=== PATIENT | male | born 1960 | race Caucasian/White ===

== ENCOUNTER 2021-04-16 20:35 | Inpatient (IN) | payer BC ==
[2021-04-16] MEDS ORDERED: Ketamine 50 MG/ML (10ML VIAL) ONE (20:52)
[2021-04-16] MEDS ORDERED: Heparin 10,000 UNITS/ 10 ML VIAL ONE (20:53)
[2021-04-16] MEDS ORDERED: Norepinephrine 8 MG/0.9% NS 250 ML ONE (20:53)
[2021-04-16] MEDS ORDERED: Heparin 25,000 units/D5W 500 ML ONE (20:53)
[2021-04-16] MEDS ORDERED: Lidocaine 1% PF 5 ML VIAL ONE (20:55)
[2021-04-16] MEDS ORDERED: Fentanyl CADD 100 ML IV SCH (21:00)
[2021-04-16] MEDS ORDERED: Fentanyl 100 MCG/2 ML VIAL ONE (21:02)
[2021-04-16] MEDS ORDERED: Propofol 1,000 MG/100 ML VIAL IV ONE (21:02)
[2021-04-16] MEDS ORDERED: Midazolam HCl 5 mg/ml Vial ONE (21:03)
[2021-04-16 21:33] LABS: Hemoglobin 14.8 g/dL (14.0-18.0); Mean Corpuscular HGB CONC 33.9 g/dL (32.0-36.0); Mean Corpuscular Hemoglobin 32.6 pg (27.0-31.0); Mean Corpuscular Volume 96.2 fL (78.0-98.0); Mean Platelet Volume 8.1 fL (7.4-10.4); Platelet Count 193 thou/uL (130-400); RBC Distribution Width 12.1 % (11.5-14.5); Red Blood Cell (RBC) Count 4.54 mill/uL (4.70-6.10); White Blood Cell (WBC) Count 14.1 thou/uL (4.8-10.8)
[2021-04-16 21:48] LABS: ALT (SGPT) 172 U/L (8-55); AST (SGOT) 135 U/L (5-34); Alkaline Phosphatase 62 U/L (40-110); Anion Gap 31 mmol/L (10-20); BUN (Urea Nitrogen) 12 mg/dL (8.4-25.7); Bilirubin, Total 0.7 mg/dL (0.2-1.2); CK (CPK) 168 U/L (30-200); Calc. Creatinine Clearance 0 mL/min (70-130); Calcium 8.6 mg/dL (7.8-10.44); Carbon Dioxide 11 mmol/L (22-29); Chloride 106 mmol/L (98-107); Globulin 2.2 g/dL (2.4-3.5); Glucose 266 mg/dL (70-105); Protein, Total 6.2 g/dL (6.0-8.3); Sodium 145 mmol/L (136-145)
[2021-04-16 21:52] LABS: Band 9 % (5-11); Lymphocytes 15 % (21-51); MDiff Complete? YES; Monocytes 4 % (0-10); Myelocyte 1 % (0-0); Neutrophil 41 % (42-75); Platelet Morphology Comment Appears Adequate; RBC Morphology Normal; Reactive Lymphocytes 30 % (0-10)
[2021-04-16 21:57] LABS: Potassium 2.8 mmol/L (3.5-5.1)
[2021-04-16] MEDS ORDERED: Potassium Chloride 40 MEQ in Premix Bag 1 BAG IVPB SCH (22:30)
[2021-04-16 22:44] LABS: Bacteria/HPF 3+ HPF (None Seen); Bilirubin Negative (Negative); Blood, Urine 3+ (Negative); Clarity Turbid (Clear); Glucose, Urine (Dipstick) 70 mg/dL (Negative); Ketone, Urine Trace mg/dL (Negative); Leukocyte Negative Leu/uL (Negative); Mucous/LPF Rare LPF (<2+); Nitrite Negative (Negative); Protein, Urine (Dipstick) 600 mg/dL (Neg-Trace); RBC/HPF 21-50 HPF (0-3); Squamous Epithelial 0-3 HPF (0-3); Urobilinogen Normal mg/dL (Less than 2); WBC/HPF 21-50 HPF (0-3); pH, Urine 6.5 (5.0-9.0)
[2021-04-16 23:13] LABS: Magnesium 2.8 mg/dL (1.6-2.6)
[2021-04-16] MEDS ORDERED: Ondansetron PF 4 MG/2 ML Vial IVP PRN (23:14)
[2021-04-16 23:36] LABS: SARS-CoV-2 NAA Rapid Test Not Detected (NotDetected)
[2021-04-16 23:55] LABS: Actual Bicarbonate (HCO3a) 9.5 mEq/L (22-28); Analyzer IN Cardio ER; Base Excess (BEa) -18.4 mEq/L (-2.0 to +3.0); CO2 Tension 29.2 mmHg (35.0-45.0); Carboxyhemoglobin (COHb) 0.3 gm% (0.0-3.0); Hemoglobin (Hb) 13.9 g/dL (14.0-18.0); O2 Tension (PaO2), arterial 413.4 mmHg (80.0-100.0); Potassium - ABG Lab 2.82 mmol/L (3.70-5.30)
[2021-04-16 23:55] LABS: Actual Bicarbonate (HCO3a) 14.7 mEq/L (22-28); Analyzer IN Cardio ER; Calcium, Ionized (arterial) 1.12 mmol/L (1.12-1.30); Carboxyhemoglobin (COHb) 0.3 gm% (0.0-3.0); Hemoglobin (Hb) 14.9 g/dL (14.0-18.0); O2 Tension (PaO2), arterial 166.9 mmHg (80.0-100.0); Potassium - ABG Lab 3.93 mmol/L (3.70-5.30); pH, Arterial 7.49 (7.35-7.45)
[2021-04-17] MEDS ORDERED: Dextrose 50% Abboject 50 ML SYRINGE SLOW IVP PRN (00:04)
[2021-04-17] MEDS ORDERED: Dextrose 5% in Water 1,000 ML IV PRN (00:04)
[2021-04-17] MEDS ORDERED: HumaLOG 300 UNITS/3 ML VIAL SC PRN ×2 (00:04)
[2021-04-17 00:06] LABS: Troponin I 1.629 ng/mL (< 0.028)
[2021-04-17] MEDS ORDERED: Sodium Chloride 0.9% 1,000 ML IV SCH ×4 (00:15→17:42)
[2021-04-17] MEDS ORDERED: Cefepime 2 GM in Sodium Chloride 0.9% 100 ML IVPB SCH (00:15)
[2021-04-17 00:33] LABS: Puncture Site RBA; pH, Arterial 7.13 (7.35-7.45)
[2021-04-17 00:34] LABS: Puncture Site LRA
[2021-04-17] MEDS ORDERED: Ventilator Sedation Protocol 1 EACH FS SCH (00:45)
[2021-04-17] MEDS ORDERED: Norepinephrine 8 MG/0.9% NS 250 ML IVPB SCH (00:45)
[2021-04-17] MEDS ORDERED: Amiodarone 450 MG in Dextrose 5% in Water 250 ML IVPB SCH (00:45)
[2021-04-17] MEDS ORDERED: Heparin 25,000 units/D5W 500 ML IVPB SCH (00:45)
[2021-04-17] MEDS ORDERED: Heparin 10,000 UNITS/ 10 ML VIAL SLOW IVP SCH (00:45)
[2021-04-17 00:46] LABS: Lactic Acid 2.3 mmol/L (0.5-2.2)
[2021-04-17] MEDS ORDERED: Propofol 1,000 MG/100 ML VIAL IV PRN (01:00)
[2021-04-17] MEDS ORDERED: Morphine 2 MG/ML VIAL SLOW IVP PRN (01:00)
[2021-04-17] MEDS ORDERED: Propofol BOLUS 1,000 MG/100 ML VIAL IV PRN (01:00)
[2021-04-17] MEDS ORDERED: VANCOMYCIN 2 GRAM/400 ML BAG 2 GM in Premix Bag 1 BAG IVPB SCH (01:00)
[2021-04-17] MEDS ORDERED: Lorazepam 2 MG/ML VIAL SLOW IVP PRN (01:00)
[2021-04-17] MEDS ORDERED: Fentanyl BOLUS 250 ML IVPB PRN (01:00)
[2021-04-17] MEDS ORDERED: DISCONTINUE PREVIOUS NARCOTIC PAIN MEDICATIONS AND BENZODIAZEPINES FS SCH (01:00)
[2021-04-17 03:09] LABS: Hemoglobin 14.6 g/dL (14.0-18.0); Platelet Count 221 thou/uL (130-400)
[2021-04-17] MEDS ORDERED: Propofol 1,000 MG/100 ML VIAL IV ONE ×2 (03:09→09:59)
[2021-04-17 03:37] LABS: Troponin I 4.802 ng/mL (< 0.028)
[2021-04-17] MEDS ORDERED: Cefepime 2 GM VIAL ONE ×3 (03:38→09:16)
[2021-04-17] MEDS ORDERED: Insulin Regular 300 UNITS/3 ML VIAL ONE (04:17)
[2021-04-17 04:55] LABS: Magnesium 2.3 mg/dL (1.6-2.6)
[2021-04-17] MEDS ORDERED: Norepinephrine 8 MG/0.9% NS 250 ML ONE (04:57)
[2021-04-17] MEDS: Heparin 5,000 UNITS/ML VIAL SC SCH (05:00)
[2021-04-17 05:05] LABS: Band 5 % (5-11); Hemoglobin 14.8 g/dL (14.0-18.0); Lymphocytes 12 % (21-51); MDiff Complete? YES; Mean Corpuscular HGB CONC 34.4 g/dL (32.0-36.0); Mean Corpuscular Hemoglobin 32.1 pg (27.0-31.0); Mean Corpuscular Volume 93.5 fL (78.0-98.0); Mean Platelet Volume 7.6 fL (7.4-10.4); Monocytes 9 % (0-10); Neutrophil 74 % (42-75); Platelet Count 225 thou/uL (130-400); Platelet Morphology Comment Appears Adequate; RBC Distribution Width 12.3 % (11.5-14.5); RBC Morphology Normal; Red Blood Cell (RBC) Count 4.61 mill/uL (4.70-6.10); White Blood Cell (WBC) Count 22.1 thou/uL (4.8-10.8)
[2021-04-17 05:21] LABS: ALT (SGPT) 244 U/L (8-55); AST (SGOT) 206 U/L (5-34); Albumin 4.1 g/dL (3.5-5.0); Alkaline Phosphatase 76 U/L (40-110); Anion Gap 20 mmol/L (10-20); BUN (Urea Nitrogen) 18 mg/dL (8.4-25.7); Bilirubin, Total 0.9 mg/dL (0.2-1.2); Calc. Creatinine Clearance 80 mL/min (70-130); Calcium 8.7 mg/dL (7.8-10.44); Carbon Dioxide 16 mmol/L (22-29); Chloride 110 mmol/L (98-107); Globulin 2.4 g/dL (2.4-3.5); Glucose 169 mg/dL (70-105); Potassium 3.8 mmol/L (3.5-5.1); Protein, Total 6.5 g/dL (6.0-8.3); Sodium 142 mmol/L (136-145)
[2021-04-17] MEDS ORDERED: Potassium Chloride 10 MEQ in Premix Bag 1 BAG IVPB SCH (06:00)
[2021-04-17 07:13] LABS: Critical Call Chem Troponin I RESULT DECREASING; Troponin I 2.851 ng/mL (< 0.028)
[2021-04-17] MEDS: Cefepime 2 GM in Sodium Chloride 0.9% 100 ML IVPB SCH ×3 (08:36→23:21)
[2021-04-17] MEDS ORDERED: Famotidine/PF 20 mg/2ml Vial ONE (08:43)
[2021-04-17] MEDS ORDERED: Aspirin Chewable 81 MG TAB ONE (08:43)
[2021-04-17] MEDS: Famotidine 20 MG TAB PO SCH ×2 (08:45→20:15)
[2021-04-17] MEDS: Aspirin 81 mg Enteric Coated Tablet PO SCH (08:45)
[2021-04-17] MEDS ORDERED: Enoxaparin Sodium 100 MG/ML SYRINGE ONE (09:29)
[2021-04-17] MEDS: Enoxaparin Sodium 100 MG/ML SYRINGE SC SCH ×2 (09:30→20:24)
[2021-04-17 10:00] LABS: Chloride 112 mmol/L (98-107); Potassium 3.5 mmol/L (3.5-5.1); Sodium 141 mmol/L (136-145)
[2021-04-17] MEDS ORDERED: Acetaminophen 325 MG TAB ONE (10:08)
[2021-04-17 10:09] LABS: Anion Gap 19 mmol/L (10-20); BUN (Urea Nitrogen) 17 mg/dL (8.4-25.7); Calc. Creatinine Clearance 95 mL/min (70-130); Calcium 7.7 mg/dL (7.8-10.44); Carbon Dioxide 14 mmol/L (22-29); Glucose 143 mg/dL (70-105)
[2021-04-17] MEDS ORDERED: metroNIDAZOLE 500 MG/100 ML BAG ONE (10:09)
[2021-04-17] MEDS ORDERED: Potassium Chloride 20 MEQ TAB PO SCH ×2 (10:45→21:45)
[2021-04-17] MEDS: Vancomycin 1 GM in Premix Bag 1 BAG IVPB SCH (13:54)
[2021-04-17] MEDS ORDERED: Nitroglycerin 2% Ointment 1 INCH/1 GM Packet TOP SCH ×2 (15:30→15:45)
[2021-04-17] MEDS ORDERED: Nitroglycerin 0.4 MG TAB (25 Tab Bottle) SL SCH ×2 (15:30→15:45)
[2021-04-17] MEDS ORDERED: Nitroglycerin 2% Ointment 1 INCH/1 GM Packet ONE (15:32)
[2021-04-17] MEDS ORDERED: Morphine 4 MG/ML VIAL SLOW IVP SCH ×2 (15:38→15:45)
[2021-04-17] MEDS ORDERED: Communication Order-Pharmacy FS SCH (17:45)
[2021-04-17] MEDS: Ketorolac Tromethamine 30 MG/ML VIAL IVP PRN (18:17)
[2021-04-17] MEDS: Acetaminophen 325 MG TAB PO PRN (20:21)
[2021-04-17] MEDS ORDERED: Furosemide 20 MG/2 ML VIAL SLOW IVP SCH (21:45)
[2021-04-17] MEDS: Nitroglycerin 2% Ointment 1 INCH/1 GM Packet TOP SCH (21:47)
[2021-04-18] MEDS: Vancomycin 1 GM in Premix Bag 1 BAG IVPB SCH ×2 (01:12→15:52)
[2021-04-18] MEDS: Ketorolac Tromethamine 30 MG/ML VIAL IVP PRN ×2 (02:29→20:49)
[2021-04-18 04:25] LABS: #Lymphocytes 1.2 thou/uL (1.20-3.40); #Monocytes 0.8 thou/uL (0.11-0.59); #Neutrophils 7.8 thou/uL (1.40-6.50); %Basophils 0.5 % (0.0-1.0); %Eosinophils 0.3 % (0.0-10.0); %Monocytes 8.3 % (0.0-10.0); %Neutrophils 78.8 % (42.0-75.0); Hemoglobin 11.6 g/dL (14.0-18.0); Mean Corpuscular Hemoglobin 32.9 pg (27.0-31.0); Mean Platelet Volume 7.6 fL (7.4-10.4); Platelet Count 128 thou/uL (130-400); RBC Distribution Width 12.4 % (11.5-14.5); Red Blood Cell (RBC) Count 3.53 mill/uL (4.70-6.10); White Blood Cell (WBC) Count 9.8 thou/uL (4.8-10.8)
[2021-04-18 04:50] LABS: ALT (SGPT) 140 U/L (8-55); AST (SGOT) 137 U/L (5-34); Albumin 3.4 g/dL (3.5-5.0); Alkaline Phosphatase 48 U/L (40-110); Anion Gap 10 mmol/L (10-20); BUN (Urea Nitrogen) 17 mg/dL (8.4-25.7); Bilirubin, Total 0.8 mg/dL (0.2-1.2); Calc. Creatinine Clearance 111 mL/min (70-130); Calcium 7.6 mg/dL (7.8-10.44); Carbon Dioxide 23 mmol/L (22-29); Chloride 109 mmol/L (98-107); Globulin 1.6 g/dL (2.4-3.5); Glucose 108 mg/dL (70-105); Potassium 3.7 mmol/L (3.5-5.1); Sodium 138 mmol/L (136-145)
[2021-04-18] MEDS: Nitroglycerin 2% Ointment 1 INCH/1 GM Packet TOP SCH (05:03)
[2021-04-18] MEDS: Cefepime 2 GM in Sodium Chloride 0.9% 100 ML IVPB SCH ×2 (07:26→16:01)
[2021-04-18] MEDS ORDERED: Lidocaine 1% (PF) 30 ML VIAL ONE (07:28)
[2021-04-18] MEDS ORDERED: Fentanyl 100 MCG/2 ML VIAL ONE (08:01)
[2021-04-18] MEDS ORDERED: Midazolam HCl 2 mg/2 ml Vial ONE (08:01)
[2021-04-18] MEDS ORDERED: Adenosine 6 MG/2 ML VIAL ONE (08:07)
[2021-04-18] MEDS ORDERED: Heparin 10,000 UNITS/ 10 ML VIAL ONE (08:34)
[2021-04-18] MEDS ORDERED: Nitroglycerin 100MG/250ML BOT 0 ML ONE (08:34)
[2021-04-18] MEDS ORDERED: diphenhydrAMINE 50 MG/ML VIAL ONE (08:36)
[2021-04-18] MEDS ORDERED: Iopamidol 370 76% 100 ML VIAL ONE (08:47)
[2021-04-18] MEDS ORDERED: Nitroglycerin 0.4 MG TAB (25 Tab Bottle) SL PRN (08:58)
[2021-04-18] MEDS ORDERED: Sodium Chloride 0.9% 200 ML IV PRN (08:58)
[2021-04-18] MEDS: Famotidine 20 MG TAB PO SCH ×2 (09:36→20:50)
[2021-04-18] MEDS: Acetaminophen 325 MG TAB PO PRN (09:37)
[2021-04-18] MEDS: Aspirin 81 mg Enteric Coated Tablet PO SCH (09:37)
[2021-04-18 10:05] LABS: Bilirubin Negative (Negative); Blood, Urine 3+ (Negative); Clarity Turbid (Clear); Glucose, Urine (Dipstick) Normal (Negative); Ketone, Urine 10 mg/dL (Negative); Leukocyte Negative Leu/uL (Negative); Nitrite Negative (Negative); Protein, Urine (Dipstick) 70 mg/dL (Neg-Trace); Squamous Epithelial 0-3 HPF (0-3); Urobilinogen Normal mg/dL (Less than 2)
[2021-04-18 10:13] LABS: Bacteria/HPF 1+ HPF (None Seen); Specific Gravity, Urine Greater than 1.060 (1.002-1.036)
[2021-04-18 10:16] LABS: Yeast-Budding None Seen HPF (None Seen)
[2021-04-18 10:17] LABS: Urine Culture Reflex Yes Yes
[2021-04-18] MEDS ORDERED: Potassium Chloride 20 MEQ TAB PO SCH (13:00)
[2021-04-18 13:46] LABS: Vancomycin, Trough 11.2 ug/mL
[2021-04-18] MEDS ORDERED: Vancomycin 1.5 GRAM/300 ML BAG 1.5 GM in Premix Bag 1 BAG IVPB SCH (14:15)
[2021-04-19] MEDS: Cefepime 2 GM in Sodium Chloride 0.9% 100 ML IVPB SCH ×3 (00:59→16:12)
[2021-04-19 01:16] LABS: Hemoglobin 12.1 g/dL (14.0-18.0); Platelet Count 128 thou/uL (130-400)
[2021-04-19 04:38] LABS: Magnesium 2.1 mg/dL (1.6-2.6)
[2021-04-19 05:14] LABS: #Basophils 0.1 thou/uL (0.0-0.2); #Eosinphils 0.1 thou/uL (0.0-0.7); #Lymphocytes 0.9 thou/uL (1.20-3.40); #Monocytes 0.6 thou/uL (0.11-0.59); #Neutrophils 5.4 thou/uL (1.40-6.50); %Basophils 0.9 % (0.0-1.0); %Lymphocytes 12.9 % (21.0-51.0); %Monocytes 8.3 % (0.0-10.0); Hemoglobin 11.4 g/dL (14.0-18.0); Mean Corpuscular HGB CONC 33.1 g/dL (32.0-36.0); Mean Corpuscular Hemoglobin 30.7 pg (27.0-31.0); Mean Corpuscular Volume 92.8 fL (78.0-98.0); Mean Platelet Volume 7.9 fL (7.4-10.4); Platelet Count 129 thou/uL (130-400); RBC Distribution Width 11.9 % (11.5-14.5); Red Blood Cell (RBC) Count 3.72 mill/uL (4.70-6.10)
[2021-04-19] MEDS ORDERED: Vancomycin 1.5 GRAM/300 ML BAG 1.5 GM in Premix Bag 1 BAG IVPB SCH ×2 (07:00→19:00)
[2021-04-19] MEDS: Aspirin 81 mg Enteric Coated Tablet PO SCH (07:45)
[2021-04-19] MEDS: Famotidine 20 MG TAB PO SCH ×2 (07:45→20:58)
[2021-04-19] MEDS ORDERED: CEFAZOLIN 1 GM VIAL ONE ×2 (08:35→08:36)
[2021-04-19] MEDS ORDERED: ceFAZolin 2 GM/DEX 5% 100 ML BAG ONE (08:36)
[2021-04-19] MEDS ORDERED: Gentamicin 80 MG/2 ML VIAL ONE (08:37)
[2021-04-19 09:22] LABS: Calcium 8.2 mg/dL (7.8-10.44); Chloride 112 mmol/L (98-107); Potassium 3.8 mmol/L (3.5-5.1); Sodium 141 mmol/L (136-145)
[2021-04-19 09:23] LABS: Glucose 98 mg/dL (70-105)
[2021-04-19 09:24] LABS: Anion Gap 13 mmol/L (10-20); Carbon Dioxide 20 mmol/L (22-29)
[2021-04-19 09:26] LABS: Calc. Creatinine Clearance 134 mL/min (70-130)
[2021-04-19 09:27] LABS: BUN (Urea Nitrogen) 13 mg/dL (8.4-25.7)
[2021-04-19] MEDS ORDERED: Lidocaine 1% (PF) 30 ML VIAL ONE (09:39)
[2021-04-19] MEDS ORDERED: Iopamidol 370 76% 50 ML VIAL FS ONE (09:54)
[2021-04-19] MEDS ORDERED: Propofol 1,000 MG/100 ML VIAL IV ONE (09:54)
[2021-04-19] MEDS ORDERED: PROPOFOL 200 MG/20 ML VIAL ONE (10:03)
[2021-04-19] MEDS ORDERED: Lidocaine 1% PF 5 ML VIAL ONE (10:03)
[2021-04-19] MEDS ORDERED: Midazolam HCl 2 mg/2 ml Vial ONE (10:29)
[2021-04-19] MEDS ORDERED: Fentanyl 100 MCG/2 ML VIAL ONE ×2 (10:29→11:13)
[2021-04-19] MEDS: Ketorolac Tromethamine 30 MG/ML VIAL IVP PRN ×2 (13:24→20:58)
[2021-04-19] MEDS ORDERED: Potassium Chloride 20 MEQ TAB PO SCH (16:15)
[2021-04-19] MEDS ORDERED: ceFAZolin 2 GM/DEX 5% 100 ML BAG IVPB SCH (18:00)
[2021-04-20] MEDS: Cefepime 2 GM in Sodium Chloride 0.9% 100 ML IVPB SCH ×3 (00:08→16:36)
[2021-04-20 04:34] LABS: Anion Gap 14 mmol/L (10-20); BUN (Urea Nitrogen) 16 mg/dL (8.4-25.7); Calc. Creatinine Clearance 117 mL/min (70-130); Calcium 8.8 mg/dL (7.8-10.44); Carbon Dioxide 22 mmol/L (22-29); Chloride 109 mmol/L (98-107); Glucose 96 mg/dL (70-105); Sodium 141 mmol/L (136-145)
[2021-04-20 06:10] LABS: Band 7 % (5-11); Crenated RBC SLIGHT = 1-5 cells (100X) (None Seen); Hemoglobin 13.4 g/dL (14.0-18.0); Lymphocytes 12 % (21-51); MDiff Complete? YES; Mean Corpuscular HGB CONC 35.1 g/dL (32.0-36.0); Mean Corpuscular Hemoglobin 33.1 pg (27.0-31.0); Mean Corpuscular Volume 94.1 fL (78.0-98.0); Mean Platelet Volume 10.2 fL (7.4-10.4); Monocytes 10 % (0-10); Neutrophil 71 % (42-75); Platelet Count 120 thou/uL (130-400); Platelet Morphology Comment Appears Decreased; RBC Distribution Width 12.3 % (11.5-14.5); Red Blood Cell (RBC) Count 4.04 mill/uL (4.70-6.10); White Blood Cell (WBC) Count 7.1 thou/uL (4.8-10.8)
[2021-04-20] MEDS: Famotidine 20 MG TAB PO SCH ×2 (07:35→20:53)
[2021-04-20] MEDS: Aspirin 81 mg Enteric Coated Tablet PO SCH (07:35)
[2021-04-20] MEDS ORDERED: Lisinopril 20 MG TAB PO SCH (09:00)
[2021-04-20] MEDS ORDERED: Amiodarone 200 MG TAB PO SCH (09:00)
[2021-04-20 15:25] VITALS: BMI 27.6
[2021-04-20] MEDS: Acetaminophen 325 MG TAB PO PRN ×2 (16:38→20:53)
[2021-04-20] MEDS ORDERED: Rosuvastatin 20 MG TAB PO SCH (21:00)
[2021-04-20] MEDS ORDERED: Sulfameth/Trimethoprim DS 800-160mg TAB PO SCH (21:00)
[2021-04-21] MEDS ORDERED: hydrALAZINE 20 MG/ML VIAL SLOW IVP PRN (04:11)
[2021-04-21 05:51] LABS: Anion Gap 13 mmol/L (10-20); BUN (Urea Nitrogen) 14 mg/dL (8.4-25.7); Calc. Creatinine Clearance 116 mL/min (70-130); Calcium 9.1 mg/dL (7.8-10.44); Carbon Dioxide 26 mmol/L (22-29); Chloride 107 mmol/L (98-107); Glucose 105 mg/dL (70-105); Potassium 3.6 mmol/L (3.5-5.1); Sodium 142 mmol/L (136-145)
[2021-04-21] MEDS ORDERED: Bisacodyl 5 MG TAB PO PRN (07:02)
[2021-04-21] MEDS ORDERED: Senokot S 8.6-50 MG TAB PO PRN (07:02)
[2021-04-21] MEDS ORDERED: Loperamide HCl 2 MG CAP PO PRN (07:02)
[2021-04-21] MEDS ORDERED: GUAIFENESIN SF SOLN 200 MG/10 ML UDCUP PO PRN (07:02)
[2021-04-21] MEDS ORDERED: Cepastat Lozenges 1 LOZ PO PRN (07:02)
[2021-04-21] MEDS ORDERED: Sodium Chloride 0.65% Nasal 44 ML BOT EA NARE PRN (07:02)
[2021-04-21] MEDS ORDERED: Loratadine 10 MG TAB PO PRN (07:02)
[2021-04-21] MEDS ORDERED: Calcium Carbonate 500 MG ChewTAB PO PRN (07:02)
[2021-04-21] MEDS ORDERED: Zolpidem Tartrate 5 MG TAB PO PRN (07:02)
[2021-04-21] MEDS ORDERED: HYDROcodone/Acetaminophen 5/325 mg Tablet PO PRN (07:02)
[2021-04-21] MEDS ORDERED: Hydrocerin (Eucerin) Cream 120 gm Jar TOP PRN (07:02)
[2021-04-21] MEDS ORDERED: Artificial Tear Sol 15 ML BOT EA EYE PRN (09:00)
[2021-04-21] MEDS ORDERED: Lisinopril 20 MG TAB PO SCH (09:00)
[2021-04-21] MEDS ORDERED: Cholecalciferol 1,000 UNITS (25 MCG) TAB PO SCH (09:00)
[2021-04-21] MEDS ORDERED: Cephalexin 250 MG CAP PO SCH (09:00)
[2021-04-21] MEDS: Aspirin 81 mg Enteric Coated Tablet PO SCH (09:05)
[2021-04-21] MEDS: Famotidine 20 MG TAB PO SCH (09:06)
[2021-04-21 09:10] VITALS: BP 160/78; TEMP 98.9
== END 2021-04-21 10:55 | disposition home or self-care (01) | DRG 224 ==
LOC: ERS 20:35 → ERHOLD 22:06 → CCU 04-17 12:52 → IMCU/EMU 04-18 13:14 → 2NO 04-20 13:40
PROVIDERS: ADMIT Internal Medicine; ATTEND Internal Medicine
PROC: 4A023N7 Measurement of Cardiac Sampling and Pressure, Left Heart, Percutaneous Approach (ICD-10-PCS; 2021-04-16)
PROC: B2111ZZ Fluoroscopy of Multiple Coronary Arteries using Low Osmolar Contrast (ICD-10-PCS; 2021-04-16)
PROC: 02HV33Z Insertion of Infusion Device into Superior Vena Cava, Percutaneous Approach (ICD-10-PCS; 2021-04-16)
PROC: 3E033XZ Introduction of Vasopressor into Peripheral Vein, Percutaneous Approach (ICD-10-PCS; 2021-04-16)
PROC: 5A1935Z Respiratory Ventilation, Less than 24 Consecutive Hours (ICD-10-PCS; 2021-04-16)
PROC: 0JH608Z Insertion of Defibrillator Generator into Chest Subcutaneous Tissue and Fascia, Open Approach (ICD-10-PCS; principal; 2021-04-19)
PROC: 02HK3KZ Insertion of Defibrillator Lead into Right Ventricle, Percutaneous Approach (ICD-10-PCS; 2021-04-19)
PROC: 02H63KZ Insertion of Defibrillator Lead into Right Atrium, Percutaneous Approach (ICD-10-PCS; 2021-04-19)
DX: I49.01 Ventricular fibrillation (principal); J96.00 Acute respiratory failure, unspecified whether with hypoxia or hypercapnia; R57.0 Cardiogenic shock; E87.2 Acidosis; N17.9 Acute kidney failure, unspecified; N39.0 Urinary tract infection, site not specified; I24.8 Other forms of acute ischemic heart disease; E87.6 Hypokalemia; I46.2 Cardiac arrest due to underlying cardiac condition; I10 Essential (primary) hypertension; E78.5 Hyperlipidemia, unspecified; I95.9 Hypotension, unspecified; R74.8 Abnormal levels of other serum enzymes; R73.9 Hyperglycemia, unspecified; I35.1 Nonrheumatic aortic (valve) insufficiency; R74.01 Elevation of levels of liver transaminase levels; Z20.822 Contact with and (suspected) exposure to COVID-19; D72.829 Elevated white blood cell count, unspecified; I48.0 Paroxysmal atrial fibrillation; I25.10 Atherosclerotic heart disease of native coronary artery without angina pectoris; Z95.2 Presence of prosthetic heart valve; Z95.5 Presence of coronary angioplasty implant and graft; Z95.1 Presence of aortocoronary bypass graft
CPT/HCPCS: 33249; 36415; 36416; 36556; 36600; 51702; 71045; 80048; 80053; 80202; 81001; 81003; 81015; 82010; 82550; 82805; 83036; 83605; 83735; 83880; 84484; 85007; 85025; 85027; 85730; 87040; 87086; 93005; 93010; 93306; 93454; 93798; 94002; 94003; 94760; 96365; 96366; 96367; 96368; 96375; 96376; 97139; 99152; 99153; 99292; C1777; C1898; J0153; J0282; J0690; J0692; J1200; J1580; J1644; J1650; J1815; J1885; J1940; J2001; J2250; J2270; J2704; J3010; J3370; J3480; J3490; J7050; Q9967; S0028; U0002